=== PATIENT | female | born 1990 | race Two or more races ===

== ENCOUNTER → 2025-01-18 | Outpatient (CLI) | payer BC | END | disposition home or self-care (01) | LOC: LAB 09:32 | PROVIDERS: ATTEND Obstetrics & Gynecology | DX: Z34.82 Encounter for supervision of other normal pregnancy, second trimester (principal); Z3A.00 Weeks of gestation of pregnancy not specified | CPT/HCPCS: 36415; 86780; 86850; 86900; 86901; 87340 ==

== ENCOUNTER 2025-04-05 09:40 | Outpatient (CLI) | payer BC ==
[2025-04-05 10:07] LABS: Hematocrit 37.6 % (36.0-46.0); Hemoglobin 13.0 g/dL (12.2-16.2); Mean Corpuscular Hemoglobin 30.5 pg (28.0-32.0); Mean Corpuscular Volume 88.2 fL (80.0-100.0); Nucleated Red Blood Cells % 0.0 %
== END 2025-04-05 17:00 | disposition home or self-care (01) ==
LOC: LAB 09:40
PROVIDERS: ATTEND Obstetrics & Gynecology
DX: Z34.80 Encounter for supervision of other normal pregnancy, unspecified trimester (principal); Z3A.00 Weeks of gestation of pregnancy not specified
CPT/HCPCS: 36415; 83036; 85025

== ENCOUNTER 2025-05-08 08:00 | Observation (INO) | payer BC ==
[2025-05-08] MEDS ORDERED: PREN1TAB71 OR (08:50)
--- NOTE | 2025-05-08 09:28 | DVH ---
BIOPHYSICAL PROFILE HISTORY: GDMA1 TECHNIQUE: Multiple transabdominal real-time grayscale sonographic images through the gravid uterus of the fetus with duplex Doppler color flow and M-mode spectral analysis FINDINGS: BIOPHYSICAL PROFILE: breathing score: 2 movement score: 2 tone score: 2 Quantitative MARY score: 2 (MARY: 14.1 Cm.) Total score: 8/8 The cervix measures 3.8 cm in length Single live fetus in cephalic presentation. heart rate 157 beats per minute. Posterior placenta without previa or abruption IMPRESSION: 1. Intrauterine with positive heart rate and Biophysical profile score: 8/
--- NOTE | 2025-05-08 15:09 | DVHDS2 ---
Discharge Summary Date of Admission May 08, 2025 at 08:07 Date of Discharge: May 08, 2025 Admitting Diagnosis 33+ weeks GDM A1 here for a routine NST BPP both performed and reassuring. Wounds: None Labs/Diagnostic Data: Laboratory Results Test 05/08/25 08:37 POC Glucose 89 mg/dl (70-106) Brief Hx & Hospital Course: NST BPP performed Consults/Reason for consult None Operations or Procedures NST BPP Condition at Discharge: Good Final Diagnosis/Problems List 33 weeks reassuring heart tones reassuring biophysical profile GDM A1 Discharge Disposition: Home Discharge Instruct/Medications Diet: Consistent carbohydrate Activity: No Restrictions, As Tolerated Follow Up/Referral: Kick counts labor precautions scheduled follow up routinely for NST BPP Miscellaneous Medications Vit W/ Ferrous Fumara (Pnv Plus Multivi), 1 OR, (Reported) Discharge Statement: "Patient was advised to return to the ER or call 911 if any headaches, dizzines s, shortness of breath, chest pain, abdominal pain, bleeding, fevers, or worsening of medical condition. Patient was counseled about treatment plan, medications, possible side effects, patientverbalized understanding. All questions were answered to the best of my ability. This discharge took greater then 30 minutes in planning, reviewing documentation, counseling the patient, and discussing with other team members." ASSESSMENT ASSESSMENT Assessment Visit Coding OBGYN Date of Service: May 08, 2025 Billing Provider: ANA MORALES DO SEWER PIPE OFFBEARER Common Visit Codes: 55349-ITL/OBS SAME DATE (LOW), 79202-MFJ/OBS SAME DATE (HIGH) SEWER PIPE OFFBEARER Procedure Codes: 77515-97- NON-STRESS TEST ANA MORALES DO May 08, 2025 15:09
== END 2025-05-08 09:22 | disposition home or self-care (01) ==
LOC: LDRP 08:00 → UNDOADMOB 08:00 → LDRP 08:07
PROVIDERS: ADMIT Obstetrics & Gynecology; ATTEND Obstetrics & Gynecology
DX: O24.419 Gestational diabetes mellitus in pregnancy, unspecified control (principal); Z3A.33 33 weeks gestation of pregnancy; Z98.890 Other specified postprocedural states
CPT/HCPCS: 76818; 81002; 82948; 82962; G0378; 59025; 76819

== ENCOUNTER 2025-05-17 06:39 | Observation (INO) | payer BC ==
[~2025-05-17] VITALS: Ht 172.7 cm; Wt 86.2 kg
[~2025-05-17 06:39] MED LIST: PREN1TAB71 OR
--- NOTE | 2025-05-17 09:54 | DVH ---
BIOPHYSICAL PROFILE HISTORY: GDMA1 TECHNIQUE: Multiple transabdominal real-time grayscale sonographic images through the gravid uterus of the fetus with duplex Doppler color flow and M-mode spectral analysis FINDINGS: BIOPHYSICAL PROFILE: breathing score: 2 movement score: 2 tone score: 2 Quantitative MARY score: 2 (MARY: 11 Cm.) Total score: 8/2 The cervix was not seen Single live fetus in cephalic presentation. heart rate 141 beats per minute. Grade II posterior placenta without previa or abruption IMPRESSION: Biophysical profile score: 8
[2025-05-17] MEDS: TERBUTALINE SULFATE 1 MG/ML 1ML VIAL SC SCH (10:07)
[2025-05-17] MEDS ORDERED: NIFE10CA52 PO (10:56)
[2025-05-17] MEDS ORDERED: NITR-87 PO (10:56)
[2025-05-17] MEDS: NIFEdipine 10 MG CAP PO ONE (11:10)
[2025-05-17] MEDS: BETAMETHASONE ACET (30mg/5ml) 5ml Vial 6mg/ml IM ONE (11:13)
[2025-05-18] MEDS ORDERED: NIFE10CA52 PO (12:21)
== END 2025-05-17 12:20 | disposition home or self-care (01) ==
LOC: LDRP 08:56 → UNDOADMOB 08:56 → LDRP 09:00 → UNDODISOB 12:20
PROVIDERS: ADMIT Obstetrics & Gynecology; ATTEND Obstetrics & Gynecology
DX: O24.419 Gestational diabetes mellitus in pregnancy, unspecified control (principal); Z3A.34 34 weeks gestation of pregnancy; Z98.890 Other specified postprocedural states
CPT/HCPCS: 76818; 81002; 82948; 82962; 94760; 96360; 96361; 96372; G0378; J0702; J3105; 59025; 76819

== ENCOUNTER 2025-05-18 06:21 | Observation (INO) | payer BC ==
[~2025-05-18] VITALS: Ht 172.7 cm; Wt 79.4 kg
[~2025-05-18 06:21] MED LIST changes: +NIFE10CA52 PO; +NITR-87 PO
--- NOTE | 2025-05-18 11:43 | DVH ---
BIOPHYSICAL PROFILE HISTORY: GDMA1 TECHNIQUE: Multiple transabdominal real-time grayscale sonographic images through the gravid uterus of the fetus with duplex Doppler color flow and M-mode spectral analysis FINDINGS: BIOPHYSICAL PROFILE: breathing score: 2 movement score: 2 tone score: 2 Quantitative MARY score: 2 (MARY: 13.4 Cm.) Total score: 8 The cervix not well visualized. Single live fetus in cephalic presentation. heart rate 154 beats per minute. Grade 2 placenta without previa or abruption IMPRESSION: Biophysical profile score: 8
[2025-05-18] MEDS: BETAMETHASONE ACET (30mg/5ml) 5ml Vial 6mg/ml IM ONE (12:04)
[2025-05-18] MEDS ORDERED: NIFE10CA52 PO (12:21)
[2025-05-18] MEDS: TERBUTALINE SULFATE 1 MG/ML 1ML VIAL SC SCH (12:34)
--- NOTE | 2025-05-19 11:42 | DVHDS2 ---
Physician Discharge Progress N Final Diagnosis: IUP at 34.5wks and stable ptl,gdm Operations or Procedures: Operations or Procedures nst reactive reviwed,sono Condition on Discharge: Good Disposition: Home Discharge Instructions: Diet: Regular, Consistent carbohydrate Activity: Light activity Medications: na Follow Up Care: Specialist: fu in 3d Discharge Statement: "Patient was advised to return to the ER or call 911 if any headaches, dizziness, shortness of breath, chest pain, abdominal pain, bleeding, fevers, or worsening of medical condition. Patient was counseled about treatment plan, medications, possible side effects, patientverbalized understanding. All questions were answered to the best of my ability. This discharge took greater then 30 minutes in planning, reviewing documentation, counseling the patient, and discussing with other team members." Visit Coding OBGYN Date of Service: May 18, 2025 Billing Provider: BILL LEIGH DO BUILDING SUPPLIES SALESPERSON RETAIL Common Visit Codes: 82454-[id number] INP/OBS CARE (HIGH) BUILDING SUPPLIES SALESPERSON RETAIL Procedure Codes: 58874-70- NON-STRESS TEST BILL LEIGH DO May 19, 2025 08:57
== END 2025-05-18 13:25 | disposition home or self-care (01) ==
LOC: LDRP 10:48 → UNDOADMOB 10:48 → LDRP 10:56
PROVIDERS: ADMIT Obstetrics & Gynecology; ATTEND Obstetrics & Gynecology
DX: O60.03 Preterm labor without delivery, third trimester (principal); O24.419 Gestational diabetes mellitus in pregnancy, unspecified control; Z3A.34 34 weeks gestation of pregnancy; Z79.899 Other long term (current) drug therapy; Z98.890 Other specified postprocedural states
CPT/HCPCS: 76818; 81002; 82948; 82962; 94760; 96372; G0378; J0702; J3105; 59025; 76819

== ENCOUNTER 2025-05-22 12:41 | Outpatient (CLI) | payer BC ==
[2025-05-22 14:24] LABS: Hematocrit 40.5 % (36.0-46.0); Hemoglobin 13.9 g/dL (12.2-16.2); Mean Corpuscular Hemoglobin 30.3 pg (28.0-32.0); Mean Corpuscular Volume 88.2 fL (80.0-100.0); Nucleated Red Blood Cells % 0.0 %
[2025-05-23 23:07] LABS: Chlamydia Trachomatis, NAA Negative (Negative); Neisseria gonorrhoeae, NAA Negative (Negative)
== END 2025-05-22 17:00 | disposition home or self-care (01) ==
LOC: LAB 12:41
PROVIDERS: ATTEND Obstetrics & Gynecology
DX: Z34.80 Encounter for supervision of other normal pregnancy, unspecified trimester (principal); Z11.3 Encounter for screening for infections with a predominantly sexual mode of transmission; Z72.51 High risk heterosexual behavior; Z3A.00 Weeks of gestation of pregnancy not specified
CPT/HCPCS: 36415; 85025; 86780; 87086

== ENCOUNTER 2025-05-25 12:50 | Observation (INO) | payer BC ==
[~2025-05-25] VITALS: Ht 165.1 cm; Wt 83.9 kg
--- NOTE | 2025-05-25 13:30 | DVH ---
EXAM: US BIOPHYSICAL PROFILE HISTORY: GDMA1. COMPARISON: US BIOPHYSICAL PROFILE on DOS: 05/18/25 TECHNIQUE: Transabdominal and endovaginal real time rice scale, color, and doppler evaluation. Permanent images are maintained in the patient record. FINDINGS: Normal biophysical profile score 8/8. Normal heart rate 164 beats per minute. Posterior placenta location. Grade 2 placenta. Cephalic presentation. Amniotic fluid index 12.5 cm. IMPRESSION: 1. Single viable gestation with normal cardiac heart rate.
--- NOTE | 2025-05-26 14:41 | DVHDS2 ---
Physician Discharge Progress N Final Diagnosis: 35wks gdm Operations or Procedures: Operations or Procedures nst reactive reviwed,sono Condition on Discharge: Good Disposition: Home Discharge Instructions: Diet: Consistent carbohydrate Activity: Light activity Medications: na Follow Up Care: Specialist: 3d Discharge Statement: "Patient was advised to return to the ER or call 911 if any headaches, dizziness, shortness of breath, chest pain, abdominal pain, bleeding, fevers, or worsening of medical condition. Patient was counseled about treatment plan, medications, possible side effects, patientverbalized understanding. All questions were answered to the best of my ability. This discharge took greater then 30 minutes in planning, reviewing documenta tion, counseling the patient, and discussing with other team members." Visit Coding OBGYN Date of Service: May 25, 2025 Billing Provider: BILL LEIGH DO PRESS TENDER LONG GOODS Common Visit Codes: 98438-YTPGOHX OBS CARE (HIGH) PRESS TENDER LONG GOODS Procedure Codes: 03033-63- NON-STRESS TEST BILL LEIGH DO May 26, 2025 14:41
== END 2025-05-25 14:00 | disposition home or self-care (01) ==
LOC: LDRP 12:50
PROVIDERS: ADMIT Obstetrics & Gynecology; ATTEND Obstetrics & Gynecology
DX: O24.419 Gestational diabetes mellitus in pregnancy, unspecified control (principal); Z3A.35 35 weeks gestation of pregnancy; Z98.890 Other specified postprocedural states
CPT/HCPCS: 76818; 81002; 82948; 94760; G0378; 59025; 76819

== ENCOUNTER 2025-05-31 06:41 | Observation (INO) | payer BC ==
--- NOTE | 2025-05-31 09:48 | DVH ---
BIOPHYSICAL PROFILE HISTORY: GDMA1 Comparison Study: US BIOPHYSICAL PROFILE on DOS: 05/25/25, US BIOPHYSICAL PROFILE on DOS: 05/18/25, US BIOPHYSICAL PROFILE on DOS: 05/17/25, US BIOPHYSICAL PROFILE on DOS: 05/08/25 TECHNIQUE: Multiple real-time grayscale sonographic images through the gravid uterus of the fetus with duplex Doppler color flow and M-mode spectral analysis FINDINGS: BIOPHYSICAL PROFILE: breathing score: 2 movement score: 2 tone score: 2 Quantitative MARY score: 2 (MARY: 15.9 Cm.) Total score: 8 The cervix is not visualized Single live fetus in cephalic presentation. heart rate 154 beats per minute. Grade 2, right lateral/posterior placenta without previa or abruption IMPRESSION: Biophysical profile score: 8
--- NOTE | 2025-05-31 12:47 | DVHDS2 ---
Physician Discharge Progress N Final Diagnosis: gdma1 36wks Operations or Procedures: Operations or Procedures nst reactive reviwed,sono Condition on Discharge: Good Disposition: Home Discharge Instructions: Diet: Regular, Consistent carbohydrate Activity: No Restrictions, As Tolerated Medications: na Follow Up Care: Specialist: 3d Discharge Statement: "Patient was advised to return to the ER or call 911 if any headaches, dizziness, shortness of breath, chest pain, abdominal pain, bleeding, fevers, or worsening of medical condition. Patient was counseled about treatment plan, medications, possible side effects, patientverbalized understanding. All questions were answered to the best of my ability. This discharge took greater then 30 minutes in planning, reviewing documentation, counseling the patient, and discussing with other team members." Visit Coding OBGYN Date of Service: May 31, 2025 Billing Provider: BILL LEIGH DO OIL AND GAS RECRUITER Common Visit Codes: 04345-[id number] OBS CARE (HIGH) OIL AND GAS RECRUITER Procedure Codes: 24781-06- NON-STRESS TEST BILL LEIGH DO May 31, 2025 12:47
== END 2025-05-31 10:30 | disposition home or self-care (01) ==
LOC: UNDOADMOB 08:45 → LDRP 08:45
PROVIDERS: ADMIT Obstetrics & Gynecology; ATTEND Obstetrics & Gynecology
DX: O24.419 Gestational diabetes mellitus in pregnancy, unspecified control (principal); Z3A.36 36 weeks gestation of pregnancy; Z98.890 Other specified postprocedural states
CPT/HCPCS: 76818; 81002; 82948; 82962; 94760; G0378; 59025; 76819

== ENCOUNTER 2025-06-02 01:50 | Inpatient (IN) | payer BC ==
[~2025-06-02] VITALS: Ht 172.7 cm; Wt 81.2 kg
[2025-06-02] MEDS: LACTATED RINGER'S 1,000 ML IV ONE (03:49)
[2025-06-02] MEDS: LACTATED RINGER'S 1,000 ML IV SCH (03:50)
[2025-06-02] MEDS ORDERED: BUTORPHANOL TARTRATE 2 MG/1 ML VIAL IV PRN ×2 (08:00)
[2025-06-02] MEDS ORDERED: LACTATED RINGER'S 1,000 ML IV SCH (08:00)
[2025-06-02] MEDS ORDERED: LIDOCAINE 2%HCL (LOCAL ANESTH.) INJ 20ML MDV IJ PRN (08:00)
--- NOTE | 2025-06-02 08:05 | DVHHP2 ---
OB CC & HPI Date Date of Admission: Jun 02, 2025 Patient Identification: : 2 Para: 1 Chief Complaints: Reason for admission: active labor Indication for : other Admission Nurse Assessment Rev: No History of Present Complaints pt is admitted for labor,pt was noted to be 2-3 cm she is now 4cm kenzie regularly. she has gdm a1 well controlled Past Medical History Cardiac: No pertinent Hx Pulmonary: No pertinent Hx Central Nervous System: No pertinent Hx GI: No pertinent Hx Hemotology/Oncology: No pertinent Hx Hepatobiliary: No pertinent Hx Psychiatric: No pertinent Hx Musculoskeletal: No pertinent Hx Rheumotologic: No pertinent Hx Infectious Disease: No peritnent Hx ENT: No pertinent Hx Renal/: No pertinent Hx Endocrine: No pertinent Hx Dermatology: No pertinent Hx Past Surgical History: No pertinent Hx OB History OB History Care: Good Care Obstetrical Complications: Gestational Diabetes Medical Complications: None Allergies: Coded Allergies: NO KNOWN ALLERGIES (Unverified , 05/17/25) Home Meds Reported Medications Nifedipine (PROCARDIA CAPSULE) 10 Mg Cp, 10 MG PO Q4HR, CAP 05/18/25 Nitrofurantoin Monohydrate Mac (Macrobid) 100 Mg Cap, 100 MG PO BID for 7 Days, CAP 05/17/25 Vit W/ Ferrous Fumara (PNV PLUS MULTIVI) Plus Tab, 1 OR, TAB 05/08/25 Current Medications Current Medications Medications (Trade) Dose Ordered Sig/Tony Route PRN Reason Start Time Stop Time Status Last Admin Lactated Ringer's 1,000 ml @ 125 mls/hr Q8H IV 06/02/25 02:30 06/02/25 03:50 Lactated Ringer's 1,000 ml @ 125 mls/hr Q8H IV 06/02/25 08:00 UNV Penicillin G Potassium [id number] units/Dextrose 50 ml @ 100 mls/hr Q4H IV 06/02/25 12:00 UNV Witch Tina (Tucks) 1 pad PRN PRN TOP PERINEAL AREA DISCOMFORT 06/02/25 08:00 UNV Sodium Lauryl Sulfate (Phisoderm) 240 ml PRN PRN TOP PERINEAL AREA DISCOMFORT 06/02/25 08:00 UNV Benzocaine (Dermoplast) 1 applic PRN PRN TOP PERINEAL AREA DISCOMFORT 06/02/25 08:00 UNV Butorphanol Tartrate (Stadol Injection) 1 mg Q4HPRN PRN IV MODERATE PAIN (4-6 PAIN SCALE) 06/02/25 08:00 UNV Butorphanol Tartrate (Stadol Injection) 2 mg Q4HPRN PRN IV SEVERE PAIN (7-10 PAIN SCALE) 06/02/25 08:00 UNV Lidocaine HCl (Xylocaine) 20 ml ONCE PRN IJ PERINEAL AREA DISCOMFORT 06/02/25 08:00 UNV Oxytocin 1,000 ml @ 6 ml/hr Q24H IV 06/02/25 08:00 UNV Family & Social History Family/Social History Blood Type: Unknown Rubella: immune RPR/VDRL: Negative GBS Status: Unknown HBsAG: Negative Review of Systems Constitutional: No symptom reported Ears, Nose, & Throat: No symptom reported Eyes: No symptom reported Pulmonary/Respiratory: No symptom reported Cardiovascular: No symptom reported Gastrointestinal: No symptom reported Genitourinary: No symptom reported Musculoskeletal: No symptom reported Skin: No symptom reported Psychiatric: No symptom reported Endocrine: No symptom reported Hemotologic/Lymphatic: No symptom reported OB Admission Exam Physical Exam HEENT: TMs Normal, Fontanelles Normal, Nasal Mucosa Normal, Eyes non-injected, Oropharynx Normal, PERRLA, Moist Membranes, EOMI Heart: Rhythm Normal Lungs: Clear Abdomen: Non tender Extremities: Normal Reflexes: Normal Cervical Dilatation: 4cm Effacement: 75% Station: -1 Membranes: Intact Heart Rate: 130's Accelerations: Accelerations Present Decelerations: No Decelerations Short Term Variability: Present Material Mixer Variability: Average (6-25) Contractions on Admission: < 5 Minutes Apart Intensity: Moderate OB Plan Plan Admitting Diagnosis: iup at 36+wks in labor gdma1 Plan: Expectant Management Other Plan: informed consent obtained [place] x1 possib of rds and need for transfer of baby d/w pt Visit Coding OBGYN Date of Service: Jun 02, 2025 Billing Provider: BILL LEIGH DO RESOLUTION EXPERT Common Visit Codes: 59054-[id number] INP/OBS CARE (HIGH) RESOLUTION EXPERT Procedure Codes: 02152-84- NON-STRESS TEST BILL LEIGH DO Jun 02, 2025 08:05
[2025-06-02] MEDS ORDERED: BETAMETHASONE ACET (30mg/5ml) 5ml Vial 6mg/ml IM ONE (08:30)
[2025-06-02 08:54] LABS: Hematocrit 37.1 % (36.0-46.0); Hemoglobin 12.7 g/dL (12.2-16.2); Mean Corpuscular Hemoglobin 30.4 pg (28.0-32.0); Mean Corpuscular Volume 88.5 fL (80.0-100.0); Nucleated Red Blood Cells % 0.1 %
[2025-06-02] MEDS: LACT. RINGERS/OXYTOCIN 20UNITS 1,000 ML IV SCH (09:02)
[2025-06-02] MEDS: PHISODERM TOP SOLN 240ML BTL TOP PRN (09:04)
[2025-06-02] MEDS: PENICILLIN G POT 5MIL/D5 50ML 50 ML IV ONE (09:04)
[2025-06-02] MEDS: DERMOPLAST 60ML BOTTLE TOP PRN (09:04)
[2025-06-02] MEDS: WITCH HAZEL-GLYCERIN PAD TOP PRN (09:04)
[2025-06-02 09:06] LABS: Alanine Aminotransferase 14 U/L (7-40); Albumin 3.5 g/dL (3.2-4.8); Alkaline Phosphatase 86 U/L (46-116); Anion Gap 10 (5-15); BUN/Creatinine Ratio 13.2 (10.0-20.0); Bilirubin, Total 1.2 mg/dL (0.2-1.0); Blood Urea Nitrogen < 5 mg/dL (9-23); Calcium 8.7 mg/dL (8.7-10.4); Carbon Dioxide 22 mmol/L (20-31); Chloride 109 mmol/L (98-107); Glucose 87 mg/dL (74-106); Potassium 3.5 mmol/L (3.5-5.1); Sodium 141 mmol/L (136-145); Total Protein 5.8 g/dL (5.7-8.2)
[2025-06-02 09:07] LABS: INR 0.92 (0.9-1.15); Partial Thromboplastin Time 26.8 SEC (24.5-34.5); Prothrombin Time 9.8 sec (9.3-11.8)
[2025-06-02 09:28] LABS: Urine Protein, UAD Negative (Negative)
[2025-06-02 09:52] LABS: Amphetamine Screen, Urine Neg (NEGATIVE); Barbiturate Scree,Urine Neg (NEGATIVE); Benzodiazephine Screen, Urine Neg (NEGATIVE); Cannabinoid Screen, Urine Neg (NEGATIVE); Cocaine Screen, Urine Neg (NEGATIVE); Opiate Scree,Urine Neg (NEGATIVE); Phencyclidine Screen, Urine Neg (NEGATIVE)
[2025-06-02] MEDS ORDERED: PENICILLIN G POTASSIUM 2,500,000 UNITS in D5W 5% 50 ML IV SCH (12:00)
[2025-06-02] MEDS: CLINDAMYCIN 900MG IV 50 ML IV SCH (12:06)
[2025-06-02] MEDS: DIPHENOXYLATE W/ATROPINE 2.5 MG TAB ONE (14:24)
[2025-06-02] MEDS ORDERED: METOCLOPRAMIDE HCL 5MG/ml INJ 2ml VIAL IV PRN (14:45)
[2025-06-02] MEDS ORDERED: ONDANSETRON HCL 4 MG/2 ML VIAL IV PRN (14:45)
[2025-06-02] MEDS ORDERED: HYDROmorphone HCL 2 MG/ML VL/or syr IV PRN (14:45)
[2025-06-02] MEDS ORDERED: MIDAZOLAM HCL 2MG/2ML 2ml VIAL (1mg/ml) ONE (14:46)
[2025-06-02] MEDS ORDERED: PROPOFOL 10 MG/ML 20 ML IV ONE (14:46)
[2025-06-02] MEDS ORDERED: fentaNYL CITRATE 100 MCG/2 ML VL ONE (14:46)
[2025-06-02] MEDS: TRANEXAMIC ACID 10 ML ONE (14:47)
[2025-06-02] MEDS ORDERED: ONDANSETRON HCL 4 MG/2 ML VIAL ONE (14:48)
[2025-06-02] MEDS ORDERED: METOCLOPRAMIDE HCL 5MG/ml INJ 2ml VIAL ONE (14:48)
[2025-06-02] MEDS ORDERED: LIDOCAINE 2% (LOCAL ANESTH.) PF 5ml SDV ONE (14:48)
[2025-06-02] MEDS: LACT. RINGERS/OXYTOCIN 20UNITS 500 ML IV ONE ×2 (14:54→14:55)
[2025-06-02] MEDS: ONDANSETRON HCL 4 MG/2 ML VIAL ONE (14:56)
[2025-06-02] MEDS: METHYLERGONOVINE MALEATE 0.2 MG/ML AMP IM ONE (14:56)
[2025-06-02] MEDS: CARBOPROST TROMETHAMINE 250 MCG/1ML VIAL IM ONE ×3 (14:57→15:06)
--- NOTE | 2025-06-02 15:10 | DVHHP ---
ADMIT DATE: 06/02/2025 CHIEF COMPLAINT: hemorrhage. HISTORY OF PRESENT ILLNESS: The patient is a 34-year-old 2, para 2, admitted for labor. The patient has GDMA1. She progressed to 4 cm, was started on Pitocin and delivered rapidly. Had a first-degree perineal laceration, but uterus remained boggy. Subsequently, Hemabate, Methergine and Cytotec were given, which did not respond. TXA was hanging. Subsequently, the patient continued with bleeding. Subsequently, the patient is being taken to the operating room for exploration under anesthesia, possible D and C, possible hysterectomy, possible blood transfusion. Risks and complications discussed with the patient. The patient fully understands. She agrees to proceed with planned procedure. PAST MEDICAL HISTORY: GDM. PAST SURGICAL HISTORY: None. SOCIAL HISTORY: None. FAMILY HISTORY: None. OB-TRAVEL REGISTERED NURSE ICU HISTORY: Normal vaginal delivery. REVIEW OF SYSTEMS: Consistent with HPI. PHYSICAL EXAMINATION: VITAL SIGNS: Tachy rate. HEENT: Within normal limits. CARDIOVASCULAR: Tachy rate. LUNGS: Clear to auscultation. ABDOMEN: gravid uterus noted, 20 cm. PELVIC: Vaginal blood clots noted. Cervix not contracted. Large blood clots noted. EXTREMITIES: No clubbing, cyanosis, or edema. IMPRESSION: * hemorrhage. * Uterine atony. PLAN: The patient is very uncooperative in the room. Subsequently, the patient is being taken to the operating room to be evaluated. TXA and Hemabate were given. We will proceed with TXA, Hemabate exploration, and possible placement of Delfina. The patient was counseled about the possibility of hysterectomy. She fully understands and was consented. Teresa Ferguson DO MZ/SUB TID: [id number] RECEIPT: [id number]
[2025-06-02 15:21] VITALS: PULSE 20; RESP 71; O2SAT 99
[2025-06-02] MEDS ORDERED: OXYTOCIN 10UNIT/ML 1ML VIAL ONE (15:26)
--- NOTE | 2025-06-02 15:49 | LDN2 ---
Labor and Delivery Note Date 06/02/25 Age 34 2 Para 2 EDC 12-6 EGA 36wks Diagnosis labor,gdm Vaginal Delivery: VTX Placenta: Spontaneous Sex: Male Apgars 8-9 Nuchal Cord Transected: No Amniotic Fluid: Clear Anesthesia xylocaine Episiotomy: No Extension: Yes (1st deg perineal lac) Repaired with 2-0 chromic EBL 500ml Labs Laboratory Tests 01/18/25 09:43: Hepatitis B Surface Antigen Negative Blood Bank 06/02/25 08:30: Blood Type A POSITIVE Complications uterine atony post hemorrhage Conditions stable Comments/Significant Med Safia pt delivered ,had perciptous vag del shortly after placental delivery she began having hemoorhage due to lack of good visuaalization and uncooperativeness of pt she was consented for eua and exploration of cause of post hemoorhage .pt had recieved 2 hemobate,cytotec ,txa and despite that she continued with bleeding. pt was taken to or by then uterus was more firm but cx was not contractingsubseq hilary was placed.she responded well and recieved more hemobate,pitocin and one unit of blood.she was taken to recovery room in stable condition . Visit Coding OBGYN Date of Service: Jun 02, 2025 Billing Provider: BILL LEIGH DO CUPROUS CHLORIDE HELPER Common Visit Codes: 16595-[id number] OBS CARE (HIGH) CUPROUS CHLORIDE HELPER Procedure Codes: 05962-TKH DELIVERY ONLY BILL LEIGH DO Jun 02, 2025 15:49
--- NOTE | 2025-06-02 15:53 | POSTOP ---
Post-Operative Note Post-Operative Note Preop Diagnosis hemorrhage ,uterine atony Postop Diagnosis: same Operation performed examination under anesthesia ,insertion of jadea balloon Specimen na Anesthesia: Mac Anesthesiologist: jessica harrison Blood Loss(fluid mgmt) 1500 total Surgeon Bill Ferguson Sanitation Truck Cleaner marielena Implant na Complications & Mgmt none Additional Remarks op report [id number] Date 06/02/25 Time 15:50 Visit Coding OBGYN Date of Service: Jun 02, 2025 Billing Provider: BILL FERGUSON DO GROUNDSKEEPING MAINTENANCE Common Visit Codes: [id number] INP/OBS CARE (HIGH) GROUNDSKEEPING MAINTENANCE Procedure Codes: 69825-XKV DEL INCLUDING BILL FERGUSON DO Jun 02, 2025 15:53
[2025-06-02] MEDS ORDERED: DIPHENOXYLATE W/ATROPINE 2.5 MG TAB ONE ×2 (15:54)
[2025-06-02] MEDS: DIPHENOXYLATE W/ATROPINE 2.5 MG TAB PO ONE (15:55)
--- NOTE | 2025-06-02 16:06 | DVHOP ---
PREOPERATIVE DIAGNOSES: hemorrhage, uterine atony. POSTOPERATIVE DIAGNOSES: hemorrhage, uterine atony. PROCEDURE: Examination under anesthesia. Insertion of Delfina Balloon. SURGEON: Teresa Ferguson MD [employer]DLE SCHOOL READING TEACHER: James. ESTIMATED BLOOD LOSS: 500 mL. In the operating room, the patient had 1000 mL of blood loss. ANESTHESIOLOGIST: YAHIR Harrison. ANESTHESIA: MAC. FINDINGS: External genitalia within normal limits. Vagina normal. No laceration. Cervix not well contracted. Uterus 19 weeks size. No evidence of vaginal laceration or retained POC. PROCEDURE IN DETAIL: The patient was taken to the operating room where she was placed under MAC anesthesia. She was then prepped and draped in the dorsal lithotomy position. The bladder was emptied using a Lomeli catheter. Examination under anesthesia revealed the above findings. A weighted speculum was placed in the vagina. The anterior lip of the cervix was grasped. Evaluation of the cervix revealed no cervical laceration. The uterus was firm. By this time, the uterus was a lot more firm. However, the cervix was still not contracted. Pitocin was running. Hemabate was given q. 15 minutes. A Delfina balloon was placed. The patient responded well. No bleeding was noted. One unit of blood was given. TXA also was given. The patient tolerated the procedure well. She was taken to the recovery room in stable condition. DO ERVIN Celis/WALTER TID: [id number] RECEIPT: [id number]
[2025-06-02] MEDS: ACETAMINOPHEN IV 1000 MG/100ML (10MG/ML) IV ONE (16:08)
[2025-06-02 17:00] VITALS: BP 120/63; PULSE 90; RESP 16; TEMP 98.3; O2SAT 96
[2025-06-02] MEDS: diphenhydrAMINE HCL 50 MG/1 ML VL IV ONE (17:26)
[2025-06-02 18:20] LABS: Hematocrit 38.8 % (36.0-46.0); Hemoglobin 12.9 g/dL (12.2-16.2); Mean Corpuscular Hemoglobin 29.0 pg (28.0-32.0); Mean Corpuscular Volume 87.0 fL (80.0-100.0); Nucleated Red Blood Cells % 0.0 %
[2025-06-02 18:44] LABS: Alanine Aminotransferase 16 U/L (7-40); Albumin 3.2 g/dL (3.2-4.8); Alkaline Phosphatase 82 U/L (46-116); Anion Gap 11 (5-15); BUN/Creatinine Ratio 14.3 (10.0-20.0); Carbon Dioxide 20 mmol/L (20-31); Glucose 90 mg/dL (74-106); Sodium 138 mmol/L (136-145)
[2025-06-02 18:45] LABS: Bilirubin, Total 1.8 mg/dL (0.2-1.0); Blood Urea Nitrogen 5 mg/dL (9-23); Calcium 8.1 mg/dL (8.7-10.4); Chloride 107 mmol/L (98-107); Potassium 3.2 mmol/L (3.5-5.1); Total Protein 5.4 g/dL (5.7-8.2)
[2025-06-02 19:00] VITALS: BP 115/63; PULSE 92; RESP 15; TEMP 99.8; O2SAT 95
[2025-06-02 19:14] LABS: Fibrinogen 503.0 mg/dL (177-375); INR 0.93 (0.9-1.15); Partial Thromboplastin Time 28.8 SEC (24.5-34.5); Prothrombin Time 9.9 sec (9.3-11.8)
[2025-06-02] MEDS ORDERED: CLINDAMYCIN 900MG IV 50 ML IV SCH (20:00)
[2025-06-02] MEDS ORDERED: TRANEXAMIC ACID 1,000 mg/10ml INJ VIAL IV ONE (20:14)
[2025-06-02 22:49] VITALS: BP 115/55; PULSE 96; RESP 18; TEMP 99.5; O2SAT 95
[2025-06-02 23:29] LABS: Hematocrit 35.9 % (36.0-46.0); Hemoglobin 12.0 g/dL (12.2-16.2); Mean Corpuscular Hemoglobin 29.1 pg (28.0-32.0); Mean Corpuscular Volume 87.0 fL (80.0-100.0); Nucleated Red Blood Cells % 0.1 %
[2025-06-03] MEDS: methylPREDNISolone SOD SUCC 125 MG/2 ML VL IM PRN (01:38)
[2025-06-03] MEDS: POTASSIUM CHL 20 Meq TABLET PO ONE (02:39)
[2025-06-03] MEDS: IBUPROFEN 600 MG TAB PO PRN (02:50)
[2025-06-03 02:53] VITALS: BP 94/53; PULSE 83; RESP 15; TEMP 98.3; O2SAT 95
--- NOTE | 2025-06-03 05:39 | DVHPN2 ---
Progress Note Date Seen: Jun 03, 2025 Subjective Brief Hx & Hosp Course Admitted on 06/02/2025 for labor Normal spontaneous Vaginal Delivery @ 1355 Hemorrhage 1 unit PRBC/ Dilation and Curretage by Dr Phyllis WU and Delfina placed for Uterine atony / PPH / Methergine X1 given / Hemabate X3 given Clindamycin / Tylenol IVPB given Patient has an allergic reaction , Hives noted on left side of her leg Reported of heaving feeling in her chest / difficulty breathing All medications stopped. Allergic reaction subsided Hospitalist was sent to patient bedside Charity ORDER TAKER @ [phone] , evaluated the patient Changed ANBX to Rocephin 1 gm daily Solumedrol ordered and on hold as precautionary if patient had an allergic reaction CBC/ Blood Cultures X2 ordered by hospitalist Rocephin given and no allergic reaction noted Potassium 40 meQ given p.o Delfina still in place Patient in stable condition, no reports of current allergic reaction Continue with care vital signs Vital Sign Date Time Temp Pulse Resp B/P (MAP) Pulse Ox O2 Delivery O2 Flow Rate FiO2 06/03/25 02:53 98.3 83 15 94/53 (67) 95 98.3 06/02/25 18:30 Room Air 06/02/25 17:58 0.0 06/02/25 16:40 96 Total Intake and Output 06/02/25 06/02/25 06/03/25 15:00 23:00 07:00 Intake Total 500 ml Output Total 650 ml 650 ml Balance -150 ml -650 ml medications Current Medications Medications Dose Ordered Sig/Tony Route Start Time Stop Time Status Last Admin Dose Admin Lactated Ringer's 1,000 ml @ 125 mls/hr Q8H IV 06/02/25 08:00 Tremayne Wilder 1 pad PRN PRN TOP 06/02/25 08:00 06/02/25 09:04 1 PAD Sodium Lauryl Sulfate 240 ml PRN PRN TOP 06/02/25 08:00 06/02/25 09:04 240 ML Benzocaine 1 applic PRN PRN TOP 06/02/25 08:00 06/02/25 09:04 1 APPLIC Butorphanol Tartrate 1 mg Q4HPRN PRN IV 06/02/25 08:00 Butorphanol Tartrate 2 mg Q4HPRN PRN IV 06/02/25 08:00 Lidocaine HCl 20 ml ONCE PRN IJ 06/02/25 08:00 Oxytocin 1,000 ml @ 6 ml/hr Q24H IV 06/02/25 08:00 06/02/25 09:02 6 ML/HR Ceftriaxone Sodium 1,000 mg DAILY IM 06/03/25 10:00 Cancel Methylprednisolone Sodium Succinate 125 mg ONCE PRN IM 06/02/25 22:15 Ceftriaxone Sodium 50 ml @ 100 mls/hr Q24H IV 06/03/25 23:00 06/03/25 00:16 100 MLS/HR Ibuprofen 600 mg Q6HP PRN PO 06/03/25 02:45 06/03/25 02:50 600 MG laboratory and microbiology Laboratory Tests 06/02/25 22:27 06/02/25 18:00 Test 06/02/25 18:00 Range/Units Serum Glucose 90 74-106 mg/dL Objective A&O x3 NAD. Afebrile, Chest: heart and lung sounds normal. Breasts: Nipples intact w/o cracks or soreness Abdomen: normal BS, soft, mild tenderness Delfina In placed ,unable to assess fundus Problems(with codes): (1) PPH ( hemorrhage) (2) Uterine atony (3) S/P dilation and curettage (4) Allergic reaction caused by a drug Assessment/Plan Continue with care Plan discussed with: Patient Visit Coding OBGYN Date of Service: Jun 03, 2025 Billing Provider: MARY ROD CNM TOWER EXCAVATOR OPERATOR Common Visit Codes: [id number] INP/OBS CARE (LOW) MARY RODMNov 2024 05:39
[2025-06-03 07:09] VITALS: BP 101/58; PULSE 85; RESP 15; TEMP 98; O2SAT 95
[2025-06-03] MEDS ORDERED: cefTRIAXone SOD 1,000 MG VL IM SCH (10:00)
[2025-06-03 11:15] VITALS: BP 101/51; PULSE 81; RESP 18; TEMP 97.9; O2SAT 95
[2025-06-03 19:00] VITALS: BP 96/51; PULSE 84; RESP 20; TEMP 98.1; O2SAT 95
[2025-06-03 23:00] VITALS: BP 92/52; PULSE 74; RESP 16; TEMP 97.7; O2SAT 9; O2SAT 95
[2025-06-04 03:00] VITALS: BP 104/56; PULSE 72; RESP 17; TEMP 97.8; O2SAT 96
[2025-06-04 07:00] LABS: Hematocrit 29.5 % (36.0-46.0); Hemoglobin 10.1 g/dL (12.2-16.2); Mean Corpuscular Hemoglobin 29.7 pg (28.0-32.0); Mean Corpuscular Volume 86.8 fL (80.0-100.0); Nucleated Red Blood Cells % 0.0 %
[2025-06-04 07:30] VITALS: BP 103/60; PULSE 80; RESP 17; TEMP 98.1; O2SAT 96
--- NOTE | 2025-06-04 10:24 | DVHDS2 ---
Discharge Summary Date of Admission Jun 02, 2025 at 06:51 Date of Discharge: Jun 04, 2025 Admitting Diagnosis Labor 36+ weeks Labs/Diagnostic Data: Laboratory Results Test 06/04/25 06:28 06/02/25 18:00 06/02/25 17:53 06/02/25 08:30 White Blood Count 8.4 10^3/uL (4.4-10.8) Red Blood Count 3.40 10^6/uL (4.0-5.20) Hemoglobin 10.1 g/dL (12.2-16.2) Hematocrit 29.5 % (36.0-46.0) Mean Corpuscular Volume 86.8 fL (80.0-100.0) Mean Corpuscular Hemoglobin 29.7 pg (28.0-32.0) Mean Corpuscular Hemoglobin Concent 34.3 g/dL (32.0-36.0) Red Cell Distribution Width 16.4 % (11.8-14.3) Platelet Count 148 10^3/uL (140-450) Mean Platelet Volume 8.7 fL (6.9-10.8) Neutrophils (%) (Auto) 68.3 % (37.0-80.0) Lymphocytes (%) (Auto) 21.7 % (10.0-50.0) Monocytes (%) (Auto) 8.4 % (0.0-12.0) Eosinophils (%) (Auto) 1.2 % (0.0-7.0) Basophils (%) (Auto) 0.4 % (0.0-2.0) Neutrophils # (Auto) 5.7 10 ^3/uL (1.6-8.6) Lymphocytes # (Auto) 1.8 10 ^3/uL (0.4-5.4) Monocytes # (Auto) 0.7 10 ^3/uL (0-1.3) Eosinophils # (Auto) 0.1 10 ^3/uL (0-0.8) Basophils # (Auto) 0 10 ^3/uL (0-0.2) Nucleated Red Blood Cells 0.0 % Prothrombin Time 9.9 sec (9.3-11.8) Prothrombin Time INR 0.93 (0.9-1.15) Activated Partial Thromboplast Time 28.8 SEC (24.5-34.5) Fibrinogen 503 mg/dL (177-375) Sodium Level 138 mmol/L (136-145) Potassium Level 3.2 mmol/L (3.5-5.1) Chloride Level 107 mmol/L (98-107) Carbon Dioxide Level 20 mmol/L (20-31) Anion Gap 11 (5-15) Blood Urea Nitrogen 5 mg/dL (9-23) Creatinine 0.35 mg/dL (0.550-1.02) Glomerular Filtration Rate Calc 137 mL/min (>90) BUN/Creatinine Ratio 14.3 (10.0-20.0) Serum Glucose 90 mg/dL (74-106) Calcium Level 8.1 mg/dL (8.7-10.4) Total Bilirubin 1.8 mg/dL (0.2-1.0) Aspartate Amino Transferase (AST) 28 U/L (13-40) Alanine Aminotransferase (ALT) 16 U/L (7-40) Alkaline Phosphatase 82 U/L (46-116) Total Protein 5.4 g/dL (5.7-8.2) Albumin 3.2 g/dL (3.2-4.8) POC Glucose 97 mg/dl (70-106) Treponema pallidum Antibody Non-reactive (Negative) Hepatitis C Antibody Negative (Negative) Test 06/02/25 01:50 Urine Color Light-yellow (Yellow) Urine Clarity Clear (Clear) Urine pH 6.5 (5.0-9.0) Urine Specific [place] 1.009 (1.001-1.035) Urine Protein Negative (Negative) Urine Ketones 1+ (Negative) Urine Blood Negative /uL (Negative) Urine Nitrite Negative (Negative) Urine Bilirubin Negative (Negative) Urine Urobilinogen Normal mg/dL (Negative) Urine Leukocyte Esterase 1+ /uL (Negative) Urine RBC <1 /hpf (0 - 4) Urine Microscopic WBC 2 /HPF (0-5) Urine Squamous Epithelial Cells Few /hpf (<5) Urine Bacteria None seen /hpf (None Seen) Urine Glucose Normal mg/dL (Normal) Urine Opiates Screen Neg (NEGATIVE) Urine Fentanyl Screen Neg (NEGATIVE) Urine Barbiturates Screen Neg (NEGATIVE) Urine Phencyclidine Screen Neg (NEGATIVE) Urine Amphetamines Screen Neg (NEGATIVE) Urine Benzodiazepines Screen Neg (NEGATIVE) Urine Cocaine Screen Neg (NEGATIVE) Urine Cannabinoids Screen Neg (NEGATIVE) Other Laboratory Tests 06/04/25 06:28 06/02/25 18:00 Brief Hx & Hospital Course: Patient had an complicated by hemorrhage requiring D and C and intrauterine Lomeli. Operations or Procedures suction D&C Condition at Discharge: Good Final Diagnosis/Problems List same Discharge Disposition: Home Discharge Instruct/Medications Diet: Regular Activity: Light activity Activity comment: pelvic rest 6 weeks Follow Up/Referral: 2 weeks primary [employer] or prn Medications: Resume home meds Scheduled Nifedipine (Procardia Capsule), 10 MG PO Q4HR, (Reported) Nitrofurantoin Monohydrate Mac (Macrobid), 100 MG PO BID, (Reported) Miscellaneous Medications Vit W/ Ferrous Fumara (Pnv Plus Multivi), 1 OR, (Reported) Discharge Statement: "Patient was advised to return to the ER or call 911 if any headaches, dizziness, shortness of breath, chest pain, abdominal pain, bleeding, fevers, or worsening of medical condition. Patient was counseled about treatment plan, medications, possible side effects, patientverbalized understanding. All questions were answered to the best of my ability. This discharge took greater then 30 minutes in planning, reviewing documentation, counseling the patient, and discussing with other team members." ASSESSMENT ASSESSMENT Assessment same Visit Coding OBGYN Date of Service: Jun 04, 2025 Billing Provider: ANA MORALES DO ABSTRACTOR Common Visit Codes: 53822-[id number] INP/OBS CARE(HIGH), 01981-DUR/OBS SAME DATE (LOW) ABSTRACTOR Procedure Codes: [id number] OB CARE,VAG DELIVERY ANA MORALES DO Jun 04, 2025 10:24
== END 2025-06-04 11:30 | disposition home or self-care (01) | DRG 768 ==
LOC: LDRP 01:50 → OBSVTOIN 06:51 → LDRP 06:52
PROVIDERS: ADMIT Obstetrics & Gynecology; ATTEND Obstetrics & Gynecology
PROC: 0W3R7ZZ Control Bleeding in Genitourinary Tract, Via Natural or Artificial Opening (ICD-10-PCS; 2025-06-02)
PROC: 10E0XZZ Delivery of Products of Conception, External Approach (ICD-10-PCS; 2025-06-02)
PROC: 30233N1 Transfusion of Nonautologous Red Blood Cells into Peripheral Vein, Percutaneous Approach (ICD-10-PCS; 2025-06-02)
PROC: 0HQ9XZZ Repair Perineum Skin, External Approach (ICD-10-PCS; principal; 2025-06-02 14:45)
DX: O24.420 Gestational diabetes mellitus in childbirth, diet controlled (principal); Z37.0 Single live birth; O72.1 Other immediate postpartum hemorrhage; Z3A.36 36 weeks gestation of pregnancy; O70.0 First degree perineal laceration during delivery
CPT/HCPCS: 36415; 59025; 59409; 80053; 80307; 81001; 81002; 82948; 82962; 85025; 85384; 85610; 85730; 86780; 86803; 86850; 86900; 86901; 86920; 87040; 94760; 96360; 96361; 96365; 96366; 96372; G0378; J0131; J0696; J2003; J2250; J2405; J2540; J2590; J2704; J3490; J7060

== ENCOUNTER 2025-06-09 10:26 | Outpatient (CLI) | payer BC ==
[2025-06-09 10:54] LABS: Hematocrit 38.6 % (36.0-46.0); Hemoglobin 13.2 g/dL (12.2-16.2); Mean Corpuscular Hemoglobin 30.3 pg (28.0-32.0); Mean Corpuscular Volume 88.3 fL (80.0-100.0); Nucleated Red Blood Cells % 0.1 %
[2025-06-09 12:00] LABS: Iron 77.0 ug/dL (50-170)
[2025-06-09 12:07] LABS: Ferritin 29.9 ng/mL (10-291)
[2025-06-09 12:14] LABS: Total Iron Binding Capacity 428.0 ug/dL (250-425)
== END 2025-06-09 17:00 | disposition home or self-care (01) ==
LOC: LAB 10:26
DX: F53.0 Postpartum depression (principal)
CPT/HCPCS: 36415; 82607; 82728; 82746; 83540; 83550; 85025

== ENCOUNTER 2025-07-05 08:22 | Outpatient (CLI) | payer BC ==
[2025-07-05 09:08] LABS: Hematocrit 42.4 % (36.0-46.0); Hemoglobin 13.9 g/dL (12.2-16.2); Mean Corpuscular Hemoglobin 29.1 pg (28.0-32.0); Mean Corpuscular Volume 88.8 fL (80.0-100.0); Nucleated Red Blood Cells % 0.1 %
== END 2025-07-05 17:00 | disposition home or self-care (01) ==
LOC: LAB 08:22
DX: Z39.2 Encounter for routine postpartum follow-up (principal); Z86.32 Personal history of gestational diabetes
CPT/HCPCS: 36415; 82951; 83036; 85025